=== PATIENT | female | born 1995 | race Caucasian/White ===

== ENCOUNTER 2022-09-23 12:46 | Emergency (ER) | payer OTHER ==
[~2022-09-23] VITALS: Ht 160 cm; Wt 77.6 kg
[2022-09-23 13:23] VITALS: BP 112/68
--- NOTE | 2022-09-23 14:56 | NUR ---
FLU, COVID SWABS DONE.
[2022-09-23] MEDS ORDERED: LIDO100S PO (15:27)
[2022-09-23] MEDS ORDERED: ALBU0.0912 IH (15:27)
[2022-09-23] MEDS ORDERED: PROM118S5 PO (15:27)
[2022-09-23] MEDS ORDERED: IBUP-2213 PO (15:27)
== END 2022-09-23 16:15 | disposition home or self-care (01) ==
LOC: MED 12:46
DX: J06.9 Acute upper respiratory infection, unspecified (principal); Z20.822 Contact with and (suspected) exposure to COVID-19; Z79.899 Other long term (current) drug therapy; Z79.1 Long term (current) use of non-steroidal anti-inflammatories (NSAID)
CPT/HCPCS: 99283